=== PATIENT | male | born 1970 | race Caucasian/White ===

== ENCOUNTER 2016-08-25 11:55 | Emergency (ER) | payer OTHER ==
[2016-08-25] MEDS ORDERED: IPRATROPIUM-ALBUTEROL 3 ML NEB INHALATION STA (12:20)
--- NOTE | 2016-08-25 12:23 | ED ---
Psych HPI - General Chief Complaint: Psychiatric Symptoms Stated Complaint: Mental health Time Seen by Provider: 08/25/16 12:05 Source: patient, RN notes reviewed Mode of arrival: ambulatory Limitations: no limitations - History of Present Illness Initial Comments: 45-year-old male presents emergency Department with multiple complaints. Patient states she is severely depressed over the last 2 weeks he states he does have a history of depression but states it's ever been to this point. Patient states that he is very hopeless, feels fatigued and just no appetite. Patient states is also cough and cold-like symptoms 2 weeks ago. Patient states is not suicidal or homicidal. Patient denies illicit drug use or alcohol use. Patient states he is also had this headache in the frontal aspect which is on alleviated with any medication. Patient states never had a headache like this in the past. Patient states that he actually is pain medication for his back but states that he hasn't been taking it because it hasn 't helped his headache and he has not been doing anything so his back has not been hurting. Patient has NO KNOWN DRUG ALLERGIES. Patient has any focal weakness. Denies any nausea vomiting. - Related Data Home Medications Medication Instructions Recorded Confirmed Albuterol Sulfate [Proair Hfa] 2 puff INHALATION RT-Q4H PRN 08/25/16 08/25/16 Cefuroxime Axetil [Ceftin] 500 mg PO BID 08/25/16 08/25/16 Fluticasone Nasal [place] [Flonase 2 spr EA NOSTRIL DAILY 08/25/16 08/25/16 Nasal [place]] Fluticasone/Salmeterol [Advair 1 inhalation PO RT-BID 08/25/16 08/25/16 250-50 Diskus] Hydrocodone/Acetaminophen [[place] 1 tab PO BID 08/25/16 08/25/16 10-325] Methadone [Dolophine] 10 mg PO Q12HR 08/25/16 08/25/16 Mometasone/Formoterol [Dulera 100 2 puff INHALATION RT-BID 08/25/16 08/25/16 Mcg/5 Mcg Inhaler] Montelukast Sodium [Singulair] 10 mg PO DAILY 08/25/16 08/25/16 Naproxen [Naprosyn] 500 mg PO BID 08/25/16 08/25/16 Omeprazole [PriLOSEC] 40 mg PO BID 08/25/16 08/25/16 Sertraline [Zoloft] 50 mg PO DAILY 08/25/16 08/25/16 methylPREDNISolone [Medrol Dose See Taper PO DIRECTED 08/25/16 08/25/16 Pack] Previous Rx's Medication Instructions Recorded Amoxicillin/Potassium Clav 1 tab PO Q12HR #20 tab 08/25/16 [Augmentin 875-125 Tablet] Allergies Allergy/AdvReac Type Severity Reaction Status Date / Time No Known Allergies Allergy Verified 08/25/16 13:33 Review of Systems ROS Statement: Those systems with pertinent positive or pertinent negative responses have been documented in the HPI. ROS Other: All systems not noted in ROS Statement are negative. Past Medical History Past Medical History: Asthma History of Any Multi-Drug Resistant Organisms: None Reported Past Surgical History: Orthopedic Surgery Additional Past Surgical History / Comment(s): right elbow Past Psychological History: Depression Smoking Status: Never smoker Past Alcohol Use History: None Reported Past Drug Use History: None Reported General Exam Limitations: no limitations General appearance: alert, in no apparent distress Head exam: Present: atraumatic, normocephalic, normal inspection Eye exam: Present: normal appearance, PERRL, EOMI. Absent: scleral icterus, conjunctival injection, periorbital swelling ENT exam: Present: normal exam, normal oropharynx, mucous membranes moist, TM's normal bilaterally, normal external ear exam Neck exam: Present: normal inspection, full ROM. Absent: tenderness, meningismus, lymphadenopathy Respiratory exam: Present: normal lung sounds bilaterally. Absent: respiratory distress, wheezes, rales, rhonchi, stridor Cardiovascular Exam: Present: regular rate, normal rhythm, normal heart sounds. Absent: systolic murmur, diastolic murmur, rubs, gallop, clicks GI/Abdominal exam: Present: soft, normal bowel sounds. Absent: distended, tenderness, guarding, rebound, rigid Neurological exam: Present: alert, oriented X3, CN II-XII intact Psychiatric exam: Present: depressed Skin exam: Present: warm, dry, intact, normal color. Absent: rash Course Vital Signs 08/25/16 08/25/16 08/25/16 11:59 12:55 13:04 Temperature 98.1 F Pulse Rate 78 80 84 Respiratory 20 Rate Blood Pressure 137/80 O2 Sat by Pulse 98 Oximetry 03/26/17 14:13 Temperature 98.0 F Pulse Rate 71 Respiratory 18 Rate Blood Pressure 140/80 O2 Sat by Pulse 98 Oximetry Medical Decision Making - Medical Decision Making 45-year-old male presented for headache, depression. Patient has acute sinusitis. Patient was treated with Augmentin as time. Patient will be given outpatient resources and follow primary care physician as directed by EPS. Return parameters were discussed. - Lab Data Lab Results 08/25/16 Range/Units 12:47 Urine Opiates Screen Detected H (NotDetected) Ur Oxycodone Screen Not Detected (NotDetected) Urine Methadone Screen Detected H (NotDetected) Ur Propoxyphene Screen Not Detected (NotDetected) Ur Barbiturates Screen Not Detected (NotDetected) U Tricyclic Antidepress Not Detected (NotDetected) Ur Phencyclidine Scrn Not Detected (NotDetected) Ur Amphetamines Screen Not Detected (NotDetected) U Methamphetamines Scrn Not Detected (NotDetected) U Benzodiazepines Scrn Not Detected (NotDetected) Urine Cocaine Screen Not Detected (NotDetected) U Marijuana (THC) Screen Not Detected (NotDetected) Disposition Clinical Impression: Acute sinusitis, Depression Disposition: HOME SELF-CARE Condition: Stable Instructions: Depression (ED) Additional Instructions: Please return to the Emergency Department if symptoms worsen or any other concerns. Prescriptions: Amoxicillin/Potassium Clav [Augmentin 875-125 Tablet] 1 tab PO Q12HR #20 tab Time of Disposition: 14:59
--- NOTE | 2016-08-25 12:44 | CT ---
EXAMINATION TYPE: CT brain wo con DATE OF EXAM: 08/25/2016 12:32 PM COMPARISON: 08/18/2013 HISTORY: Depression CT DLP: 1067.7 mGycm Automated exposure control for dose reduction was used. FINDINGS: Ventricles have normal size. There is no mass effect nor midline shift. There is no sign of intracran ial hemorrhage. Calvarium is intact. There is mucosal thickening in the ethmoid and sphenoid sinus. t here is air-fluid level in the left maxillary sinus. IMPRESSION: There is sinusitis that is new compared to old exam. Otherwise negative unenhanced head CT scan.
--- NOTE | 2016-08-25 13:29 | XR ---
EXAMINATION TYPE: XR chest 2V DATE OF EXAM: 08/25/2016 1:25 PM COMPARISON: NONE HISTORY: Weakness and lethargy. Cough. TECHNIQUE: Frontal and lateral views of the chest are obtained. FINDINGS: Heart and mediastinum are normal. Lungs are clear. Diaphragm is normal. Bony thorax is int act. IMPRESSION: Normal chest
[2016-08-25] MEDS ORDERED: IBUPROFEN 600 MG TAB PO STA (14:09)
[2016-08-25 14:16] VITALS: RESP 18
[2016-08-25 15:14] VITALS: BP 135/75; PULSE 80; TEMP 98.1
== END 2016-08-25 15:14 | disposition home or self-care (01) ==
LOC: EC 11:55 → SUPCPDRO 11:55 → EC 15:14
DX: F32.9 Major depressive disorder, single episode, unspecified (principal); J01.90 Acute sinusitis, unspecified; J45.909 Unspecified asthma, uncomplicated; Z79.51 Long term (current) use of inhaled steroids; Z79.899 Other long term (current) drug therapy
CPT/HCPCS: 70450; 71020; 80306; 82075; 94640; 99284

== ENCOUNTER 2016-08-26 16:13 | Inpatient (IN) | payer MEDICAID, OTHER ==
--- NOTE | 2016-08-26 17:31 | ED ---
Psych HPI - General Chief Complaint: Psychiatric Symptoms Stated Complaint: Mental Health Eval Time Seen by Provider: 08/26/16 17:00 Source: patient, RN notes reviewed Mode of arrival: ambulatory - History of Present Illness Initial Comments: Patient is a 45-year-old male presents emergency room for evaluation. Patient states that there is something attacking his brain that is not letting him sleep. Patient states he was here yesterday for sinus congestion and depression. Patient states the depression has gotten worse. Patient states that he feels like something is "attacking his brain". Patient is unable to elaborate. Patient states if this continues he will eventually want to commit suicide. Patient denies any specific plan. Patient denies homicidal ideations. Patient denies drug use or alcohol use. Patient denies visual or auditory hallucinations. Patient states that his cold symptoms have improved since yesterday. Patient denies fevers, chills, nausea, vomiting. - Related Data Home Medications Medication Instructions Recorded Confirmed Albuterol Sulfate [Proair Hfa] 2 puff INHALATION RT-Q4H PRN 08/25/16 08/26/16 Cefuroxime Axetil [Ceftin] 500 mg PO BID 08/25/16 08/26/16 Fluticasone Nasal [place] [Flonase 2 spr EA NOSTRIL DAILY 08/25/16 08/26/16 Nasal [place]] Fluticasone/Salmeterol [Advair 1 puff INHALATION RT-BID 08/25/16 08/26/16 250-50 Diskus] Hydrocodone/Acetaminophen [[place] 1 tab PO BID 08/25/16 08/26/16 10-325] Mometasone/Formoterol [Dulera 100 2 puff INHALATION RT-BID 08/25/16 08/26/16 Mcg/5 Mcg Inhaler] Montelukast Sodium [Singulair] 10 mg PO DAILY 08/25/16 08/26/16 Naproxen [Naprosyn] 500 mg PO BID 08/25/16 08/26/16 Omeprazole [PriLOSEC] 40 mg PO BID 08/25/16 08/26/16 Sertraline [Zoloft] 50 mg PO DAILY 08/25/16 08/26/16 methylPREDNISolone [Medrol Dose See Taper PO DAILY 08/25/16 08/26/16 Pack] Previous Rx's Medication Instructions Recorded Amoxicillin/Potassium Clav 1 tab PO Q12HR #20 tab 08/25/16 [Augmentin 875-125 Tablet] Allergies Allergy/AdvReac Type Severity Reaction Status Date / Time No Known Allergies Allergy Verified 08/26/16 18:08 Review of Systems ROS Statement: Those systems with pertinent positive or pertinent negative responses have been documented in the HPI. ROS Other: All systems not noted in ROS Statement are negative. Past Medical History Past Medical History: Asthma History of Any Multi-Drug Resistant Organisms: None Reported Past Surgical History: No Surgical Hx Reported, Orthopedic Surgery Additional Past Surgical History / Comment(s): right elbow Past Psychological History: Depression Smoking Status: Never smoker Past Alcohol Use History: None Reported Past Drug Use History: None Reported General Exam - General Exam Comments Initial Comments: Sitting on exam bed, no acute distress. Limitations: no limitations General appearance: alert, in no apparent distress Head exam: Present: atraumatic, normocephalic, normal inspection Eye exam: Present: normal appearance, PERRL, EOMI Pupils: Present: normal accommodation ENT exam: Present: normal exam Neck exam: Present: normal inspection Respiratory exam: Present: normal lung sounds bilaterally. Absent: respiratory distress Cardiovascular Exam: Present: regular rate, normal rhythm, normal heart sounds GI/Abdominal exam: Present: soft, normal bowel sounds. Absent: distended, tenderness, guarding, rebound, rigid Extremities exam: Present: normal inspection Back exam: Present: normal inspection Neurological exam: Present: alert, oriented X3, CN II-XII intact, normal gait Psychiatric exam: Present: normal affect, normal mood Skin exam: Present: warm, dry, intact, normal color. Absent: rash Course Vital Signs 08/26/16 16:50 Temperature 97.2 F L Pulse Rate 79 Respiratory 16 Rate Blood Pressure 138/78 O2 Sat by Pulse 99 Oximetry Medical Decision Making - Medical Decision Making Patient is a 45-year-old male presents emergency room for psychiatric evaluation. He states his cold symptoms have improved since yesterday. Patient received a brain CT yesterday along with a chest x-ray. Patient medically cleared to be evaluated by psych. Patient evaluated by [facility] and will be admitted for further evaluation. - Lab Data Lab Results 08/26/16 Range/Units 17:00 Urine Opiates Screen Detected H (NotDetected) Ur Oxycodone Screen Not Detected (NotDetected) Urine Methadone Screen Detected H (NotDetected) Ur Propoxyphene Screen Not Detected (NotDetected) Ur Barbiturates Screen Not Detected (NotDetected) U Tricyclic Antidepress Not Detected (NotDetected) Ur Phencyclidine Scrn Not Detected (NotDetected) Ur Amphetamines Screen Not Detected (NotDetected) U Methamphetamines Scrn Not Detected (NotDetected) U Benzodiazepines Scrn Not Detected (NotDetected) Urine Cocaine Screen Not Detected (NotDetected) U Marijuana (THC) Screen Not Detected (NotDetected) Disposition Clinical Impression: Depression, Insomnia Disposition: ADMITTED IP TO THIS [facility] Condition: Stable Decision Date: 08/26/16
[2016-08-26] MEDS ORDERED: ZIPRASIDONE 20 MG VIAL IM PRN (21:12)
[2016-08-26] MEDS ORDERED: MAG HYDROX/AL HYDROX/SIMETH 30 ML CUP PO PRN (21:12)
[2016-08-26] MEDS ORDERED: MAGNESIUM HYDROXIDE 2,400 MG/10 ML CUP PO PRN (21:12)
[2016-08-26] MEDS ORDERED: ACETAMINOPHEN TAB 325 MG TAB PO PRN (21:12)
[2016-08-26 21:40] VITALS: BMI 19.8
[2016-08-26] MEDS: LORazepam 1 MG TAB PO PRN (22:03)
[2016-08-27] MEDS ORDERED: NON-FORMULARY DRUG (Mometasone/Formoterol [Dulera 100 Mcg/5 Mcg Inhaler] 2 PUFF) INHALATION SCH (08:00)
[2016-08-27] MEDS: SYMBICORT 80-4.5 MCG INHALER INHALATION SCH ×2 (09:14→18:46)
[2016-08-27] MEDS: MONTELUKAST 10 MG TAB PO SCH (09:17)
[2016-08-27] MEDS: LORazepam 1 MG TAB PO PRN ×2 (09:18→20:47)
[2016-08-27] MEDS: FLUTICASONE 50MCG/SPRAY NASAL 16GM EA NOSTRIL SCH (09:19)
[2016-08-27 09:57] LABS: Basophils % (A) 0 %; CH 30.7; CHCM 36.5; Eosinophils % (A) 0 %; HCT 46.6 % (39.0-53.0); HDW 3.23; HGB 15.9 gm/dL (13.0-17.5); Luc # (Auto) 0.15; Luc % (Auto) 1; Lymphocytes # (A) 1.1 k/uL (1.0-4.8); Lymphocytes % (A) 10 %; MCH 28.9 pg (25.0-35.0); MCHC 34.2 g/dL (31.0-37.0); MCV 84.4 fL (80.0-100.0); Monocytes # (A) 0.6 k/uL (0-1.0); Monocytes % (A) 5 %; Neutrophils # (A) 8.8 k/uL (1.3-7.7); Neutrophils % (A) 83 %; RBC 5.52 m/uL (4.30-5.90); RDW 13.2 % (11.5-15.5); WBC 10.6 k/uL (3.8-10.6); WBC (Perox) 10.93
[2016-08-27 10:27] LABS: ALT 32 U/L (21-72); AST 14 U/L (17-59); Alkaline Phosphatase 57 U/L (38-126); Anion Gap 15 mmol/L; Blood Urea Nitrogen 16 mg/dL (9-20); Calcium 9.8 mg/dL (8.4-10.2); Carbon Dioxide 25 mmol/L (22-30); Chloride 103 mmol/L (98-107); Glucose 100 mg/dL (74-99); Non-African American GFR(MDRD) >60 (>60 ml/min/1.73 sqM); Potassium 4.4 mmol/L (3.5-5.1); Sodium 143 mmol/L (137-145); Total Bilirubin 1.5 mg/dL (0.2-1.3); Total Protein 7.1 g/dL (6.3-8.2)
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
[2016-08-27 13:12] LABS: Appearance,Urine Clear (Clear); Bilirubin,Urine Negative (Negative); Glucose,Urine (UA) Negative (Negative); Ketones,Urine 2+ (Negative); Leukocyte Esterase,Urine Negative (Negative); Nitrite,Urine Negative (Negative); PH, Urine 6.5 (5.0-8.0); Protein,Urine Trace (Negative); Specific Gravity,Urine 1.019 (1.001-1.035); UA Billing (MACRO vs. MICRO) CHEM; Urobilinogen,Urine <2.0 mg/dL (<2.0)
--- NOTE | 2016-08-27 14:39 | P.CONS ---
History of Present Illness - Reason for Consult Consult date: 08/27/16 medical management - History of Present Illness This is a 45-year-old male. His primary care physician is Dr. Megan Dennis in [place] just recently established. He has a past medical history of asthma, depression. Patient states that he has depression and he does not want to live if it continues like this. He has had insomnia. He denies any previous mental health unit admissions. He states he follows with a pain physician at the [facility] Doctor Estrada. He states he's treated for spinal stenosis, degenerative disc disease. He has been on [place] and methadone but he quit taking the methadone on his own because he does not like the way it makes him feel. He has also been recently treated for sinus infection with Ceftin and asthma exacerbation with Medrol Dosepak. He presented to [facility] emergency center for above. Urine drug screen was positive for opiates and methadone.he has been admitted to the mental health unit. he complains of slow flow with urination. Review of Systems All systems: negative Constitutional: Denies chills, Denies fever Eyes: denies blurred vision, denies pain Ears, nose, mouth and throat: Denies headache, Denies sore throat Cardiovascular: Denies chest pain, Denies shortness of breath Respiratory: Denies cough Gastrointestinal: Denies abdominal pain, Denies diarrhea, Denies nausea, Denies vomiting Genitourinary: Reports urinary hesitancy Musculoskeletal: Denies myalgias Integumentary: Denies pruritus, Denies rash Neurological: Denies numbness, Denies weakness Psychiatric: Reports depression, Reports hopelessness, Reports insomnia, Reports suicidal ideation, Denies anxiety Endocrine: Denies fatigue, Denies weight change Past Medical History Past Medical History: Asthma Additional Past Medical History / Comment(s): spinal stenosis, degenerative disc disease History of Any Multi-Drug Resistant Organisms: None Reported Past Surgical History: No Surgical Hx Reported, Orthopedic Surgery Additional Past Surgical History / Comment(s): right elbow, epidural injections and ablation on his back. Past Psychological History: Depression Smoking Status: Never smoker Past Alcohol Use History: None Reported Additional Past Alcohol Use History / Comment(s): patient smoked for only one year when he was a teenager. He denies any medical marijuana, marijuana, street drug or alcohol use. 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 He is and has 2 daughters with no major medical problems. Past Drug Use History: None Reported - Past Family History Father Additional Family Medical History / Comment(s): Father is alive at age 70 with no major medical problems. Mother Additional Family Medical History / Comment(s): Mother at age 65 from lung cancer. Sister(s) Additional Family Medical History / Comment(s): Patient has 3 sisters. One has diabetes and is overweight. Patient does not have any brothers. Medications and Allergies Home Medications Medication Instructions Recorded Confirmed Type Albuterol Sulfate [Proair Hfa] 2 puff INHALATION RT-Q4H PRN 08/25/16 08/26/16 History Cefuroxime Axetil [Ceftin] 500 mg PO BID 08/25/16 08/26/16 History Fluticasone Nasal [place] [Flonase 2 spr EA NOSTRIL DAILY 08/25/16 08/26/16 History Nasal [place]] Fluticasone/Salmeterol [Advair 1 puff INHALATION RT-BID 08/25/16 08/26/16 History 250-50 Diskus] Hydrocodone/Acetaminophen [[place] 1 tab PO BID 08/25/16 08/26/16 History 10-325] Mometasone/Formoterol [Dulera 100 2 puff INHALATION RT-BID 08/25/16 08/26/16 History Mcg/5 Mcg Inhaler] Montelukast Sodium [Singulair] 10 mg PO DAILY 08/25/16 08/26/16 History Naproxen [Naprosyn] 500 mg PO BID 08/25/16 08/26/16 History Omeprazole [PriLOSEC] 40 mg PO BID 08/25/16 08/26/16 History Sertraline [Zoloft] 50 mg PO DAILY 08/25/16 08/26/16 History methylPREDNISolone [Medrol Dose See Taper PO DAILY 08/25/16 08/26/16 History Pack] Allergies Allergy/AdvReac Type Severity Reaction Status Date / Time No Known Allergies Allergy Verified 08/26/16 18:08 Physical Exam Vitals: Vital Signs Temp Pulse Pulse Pulse Resp BP BP 08/27/16 06:43 97.7 F 70 16 135/74 08/26/16 21:27 98.8 F 71 16 08/26/16 20:21 97.3 F L 64 18 124/66 BP Pulse Ox 08/27/16 06:43 08/26/16 21:27 131/81 08/26/16 20:21 98 Intake and Output 08/26/16 08/27/16 08/27/16 22:59 06:59 14:59 Other: Weight 59 kg Gen: This is a 45-year-old male. He is cooperative. HEENT: Head is atraumatic, normocephalic. Pupils equal, round. Sclerae is anicteric. NECK: Supple. No JVD. No lymphadenopathy. No thyromegaly. LUNGS: Clear to auscultation. No wheezes or rhonchi. No intercostal retractions. HEART: Regular rate and rhythm. No murmur. ABDOMEN: Soft. Bowel sounds are present. No masses. No tenderness. EXTREMITIES: No pedal edema. No calf tenderness. NEUROLOGICAL: Patient is awake, alert and oriented x3. Cranial nerves 2 through 12 are grossly intact. Results CBC & Chem 7: 08/27/16 09:27 08/27/16 09:27 Assessment and Plan Plan: 1. Depression with suicidal ideation. Patient admitted to the mental health unit. Continue current plan of care. 2. Chronic pain with history of spinal stenosis and degenerative this disease and has been on [place] and methadone. Patient has recently taken himself off methadone. 3. Mild persistent asthma with recent exacerbation. Continue Singulair 10 mg daily, Symbicort 2 puffs twice daily, Ventolin inhaler every 4 hours as needed. Patient is normally on Dulera as well. 4. No tobacco use. No need for nicotine patch. 5. Sinus infection. Complete course of antibiotics. Impression and plan of care have been directed as dictated by the signing physician. Rica Neal nurse practitioner acting as scribe for signing physician. Time with Patient: Greater than 30
[2016-08-27] MEDS: HYDROcodone/APAP 7.5-325MG 1 EACH TAB PO PRN (18:34)
[2016-08-27] MEDS: ALBUTEROL INHALER 60 PUFF/8 GM INHALER INHALATION PRN (18:48)
[2016-08-27] MEDS: AMOXIC-POT CLAV 875-125MG 1 EACH TAB PO SCH (20:45)
[2016-08-28] MEDS: SYMBICORT 80-4.5 MCG INHALER INHALATION SCH ×2 (07:47→21:11)
[2016-08-28] MEDS: ALBUTEROL INHALER 60 PUFF/8 GM INHALER INHALATION PRN ×4 (07:47→21:11)
[2016-08-28] MEDS ORDERED: ESCITALOPRAM 5 MG TAB PO SCH (09:00)
[2016-08-28] MEDS: FLUTICASONE 50MCG/SPRAY NASAL 16GM EA NOSTRIL SCH (09:23)
[2016-08-28] MEDS: MONTELUKAST 10 MG TAB PO SCH (09:23)
[2016-08-28] MEDS: AMOXIC-POT CLAV 875-125MG 1 EACH TAB PO SCH ×2 (09:23→20:30)
[2016-08-28] MEDS: LORazepam 1 MG TAB PO PRN ×2 (09:47→21:12)
--- NOTE | 2016-08-28 12:57 | P.PN ---
Progress Note - Text Interval history: The patient is found in the hallway he follows me to an interview room. He reports his mood is improving. He has a meeting scheduled with his tomorrow afternoon.as he stated that wants to reconcile and they will pursue marital therapy. He was able to sleep last night and appetite improving. He has attended groups but felt anxious this morning and had PRN Ativan We discussed the precipitating events leading to this admission. ,patient said :"METHADONE AND PREDNISONE MADE ME INSANE" We discussed his medications his questions were answered. Mental status exam: The patient is a thin male appearing his stated age. He is dressed in his own clothing. Eye contact is appropriate hygiene grooming adequate. He feels his mood is improving. He is reporting no acute suicidal or homicidal ideation intent or plan. There is no evidence of psychosis he reports feeling safe here on the mental health unit. He is endorsing no auditory or visual hallucinations. Insight and judgment improving. There is no verbal or physical aggressiveness. There is no evidence of tremor or any abnormal involuntary movements. Plan: The patient appears to be stabilizing.,increase Lexapro to 10 mg , continue Seroquel ,same dose We will consider discharging him tomorrow after family meeting . He is encouraged to continue complying with group
[2016-08-28] MEDS: HYDROcodone/APAP 7.5-325MG 1 EACH TAB PO PRN (18:36)
[2016-08-29 06:57] VITALS: BP 117/64; PULSE 67; RESP 16; TEMP 98.2
[2016-08-29] MEDS: ALBUTEROL INHALER 60 PUFF/8 GM INHALER INHALATION PRN (07:33)
[2016-08-29] MEDS: SYMBICORT 80-4.5 MCG INHALER INHALATION SCH (07:33)
[2016-08-29] MEDS ORDERED: ESCITALOPRAM 10 MG TAB PO SCH (09:00)
[2016-08-29] MEDS: FLUTICASONE 50MCG/SPRAY NASAL 16GM EA NOSTRIL SCH (09:31)
[2016-08-29] MEDS: MONTELUKAST 10 MG TAB PO SCH (09:31)
[2016-08-29] MEDS: AMOXIC-POT CLAV 875-125MG 1 EACH TAB PO SCH (09:31)
[2016-08-29] MEDS: LORazepam 1 MG TAB PO PRN (09:32)
--- NOTE | 2016-08-29 10:23 | DS ---
DATE OF ADMISSION: 08/26/2016 DATE OF DISCHARGE: 08/29/2016 CONSULTING PROVIDER: Claudia Neal. CONSULT REASON: For medical management. Do you want consulting provider notified? Yes. DISCHARGE DIAGNOSES: 1. Anxiety disorder. 2. 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 3. Unspecified depressive disorder. 4. Chronic back pain. 5. Spinal stenosis. 6. Degenerative disc disease 7. Recently diagnosed with sinus infection. 8. History of asthma. BRIEF SUMMARY OF HIS ADMISSION NOTES: Patient is 45, male who presented to the emergency with insomnia, high anxiety, poor appetite, and feeling "not in his right mind". For complete history and physical examination and social history, please refer to my initial evaluation. HOSPITAL COURSE: The patient was admitted to the mental health unit on a voluntary basis. Once he was readmitted to the mental health unit, I did review his symptoms and psychiatric medication. We decided to discontinue Zoloft and start him on Lexapro for symptoms of anxiety and mood disorder and as he was having insomnia for at least 4 days prior to the admission I did start him on Seroquel 600 mg to restore his sleep and decrease his anxiety. I discontinued the prednisone as he was on Medrol pack. I put him on [place] every 8 hours p.r.n. Patient was able to tolerate medication. He slept through the night. He was active and participating in most of the group. He did participate in our session and at the time of the discharge I met with his for family meeting and she is very supportive and she is feeling that her is doing much better than one week ago. I did discuss patient's illness and the treatment option. MENTAL STATUS EXAMINATION: At the time of the discharge, patient was sitting calmly, good eye contact, appropriate hygiene and grooming. Speech is spontaneous and non-pressured. Thought process is linear and goal directed. He is reporting no homicidal or suicidal ideation, intent or plan. He denied any trouble sleeping at night. He stated that sometimes he does feel tired in the morning from the Seroquel, but he denied any psychotic feature. There is no evidence of hypomania or jay jay. Insight and judgment improved. Cognitive ability has remained stable after the hospitalization. According to the last note from the nursing staff, patient is up on the unit, very social with other peers. He stated that he does feel drowsy in the morning from the Seroquel. He stated that he is feeling better than at the time of the admission. He denied any hallucination, denied any delusion. Denied any suicidal or homicidal ideation and there is no eminent safety risk. PLAN: 1. The patient will be discharged from the mental health unit after the family meeting. 2. Patient was referred to [facility] for counseling and his first session it will be September 12 at 11:00. 3. Patient to continue to see pain management physician regarding his spinal stenosis and chronic back pain and to regular his pain medication. 4. Patient was given another of weeks supply of Augmentin 1 tablet twice a day for his sinusitis. 5. The patient was given one-month of Lexapro 10 mg for anxiety and depression; Seroquel XR 50 mg he will take 1 to 2 tablets for insomnia. 6. Patient's stated that that there is no access to firearms. 7. Patient was instructed to return to the emergency room if any acute safety concern. Patient condition at the time of the discharge, stable.
== END 2016-08-29 09:48 | disposition home or self-care (01) | DRG 885 ==
LOC: EC 16:13 → 3MHU 20:13
PROVIDERS: ADMIT Psychiatry & Neurology Psychiatry; ATTEND Psychiatry & Neurology Psychiatry
DX: F32.3 Major depressive disorder, single episode, severe with psychotic features (principal); R45.851 Suicidal ideations; G47.00 Insomnia, unspecified; F41.9 Anxiety disorder, unspecified; J45.909 Unspecified asthma, uncomplicated; J01.90 Acute sinusitis, unspecified; T38.0X5A Adverse effect of glucocorticoids and synthetic analogues, initial encounter; M54.5 Low back pain; F06.30 Mood disorder due to known physiological condition, unspecified; R63.4 Abnormal weight loss; F11.94 Opioid use, unspecified with opioid-induced mood disorder; M48.00 Spinal stenosis, site unspecified; G89.29 Other chronic pain; Z63.0 Problems in relationship with spouse or partner; Z79.51 Long term (current) use of inhaled steroids; Z79.52 Long term (current) use of systemic steroids; Z79.899 Other long term (current) drug therapy; Z80.1 Family history of malignant neoplasm of trachea, bronchus and lung; Z83.3 Family history of diabetes mellitus; Z59.9 Problem related to housing and economic circumstances, unspecified; Z79.1 Long term (current) use of non-steroidal anti-inflammatories (NSAID); Z87.828 Personal history of other (healed) physical injury and trauma; Z81.1 Family history of alcohol abuse and dependence; Z63.5 Disruption of family by separation and divorce; Z87.891 Personal history of nicotine dependence
CPT/HCPCS: 80053; 80306; 81003; 82075; 84443; 85025; 94640; 99285